=== PATIENT | male | born 1955 | race Caucasian/White ===

== ENCOUNTER 2020-04-18 13:32 | Emergency (ER) | payer MEDICAID ==
[~2020-04-18] VITALS: Ht 185.4 cm; Wt 86.2 kg
[2020-04-18 13:32] VITALS: BP_SYST 147
--- NOTE | 2020-04-18 13:32 | NUR ---
BROUGHT IN BY [facility] FROM HOME, PLACED IN BED #3 AND TRIAGED. REPORT GIVEN TO BLU
--- NOTE | 2020-04-18 13:35 | NUR ---
ER Dr. Deng at bedside examining patient.
[2020-04-18] MEDS ORDERED: ONDANSETRON HCL 4 MG/2 ML VIAL IVP ONE (13:45)
[2020-04-18] MEDS ORDERED: MORPHINE 4 MG/ML INJ. SYRINGE IVP ONE (13:45)
--- NOTE | 2020-04-18 14:20 | NUR ---
BLOOD DRAWN PER LAB.
[2020-04-18 14:35] LABS: BASOPHILS % (AUTO) 0.6 % (0.0-2.0); HEMATOCRIT 43.7 % (36-54); HEMOGLOBIN 14.8 g/dL (14.0-18.0); LYMPHOCYTES # (AUTO) 0.5 K/uL (1.0-5.5); LYMPHOCYTES % (AUTO) 6.3 % (20.5-51.5); MEAN CORPUSCULAR HEMOGLOBIN 34 pg (27-31); MEAN CORPUSCULAR HGB CONC 34 % (32-36); MEAN CORPUSCULAR VOLUME 100 fL (79.0-98.0); MONOCYTES # (AUTO) 0.4 K/uL (0.0-1.0); MONOCYTES % (AUTO) 5.6 % (1.7-9.3); NEUTROPHILS # (AUTO) 6.8 K/uL (1.8-7.7); NEUTROPHILS % (AUTO) 87.5 % (40.0-70.0); PLATELET COUNT (AUTO) 213 K/uL (130-430); RED BLOOD CELL COUNT(AUTO) 4.35 MIL/uL (4.2-6.2); RED CELL DISTRIBUTION WIDTH 13.9 % (9.0-15.0); WHITE BLOOD COUNT (AUTO) 7.7 K/uL (4.8-10.8)
--- NOTE | 2020-04-18 14:40 | NUR ---
PT AAO AND AMBULATORY BIB AMBULANCE FOR CHEST PAIN THAT STARTED TODAY. PT REPORTS COMING FROM HOME AND THAT CHEST PAIN STARTED THIS MORNING 03/16 PAIN AND PT ALSO C/O N/V AND HEADACHE.
[2020-04-18 14:52] LABS: INR 1.1 (0.80-1.20); PROTHROMBIN TIME 11.5 SECS (9.5-12.5)
[2020-04-18 15:07] LABS: CALCIUM 9.4 mg/dL (8.4-11.0); CREATININE 1.55 mg/dL (0.55-1.30); POTASSIUM 3.5 mmol/L (3.5-5.1)
[2020-04-18 15:10] LABS: ALBUMIN 3.5 g/dL (3.4-4.8)
--- NOTE | 2020-04-18 15:15 | NUR ---
pt in [place] with side rails up. urinal at bedside and pt reminded to call for help if needed.
[2020-04-18] MEDS ORDERED: NACL 0.9% 1,000 ML IV ONE (15:30)
--- NOTE | 2020-04-18 15:54 | NUR ---
pt alert and oriented. VSS. IVF infusing.
--- NOTE | 2020-04-18 15:55 | NUR ---
spoke to luis, hospital insurance representative, regarding pt status. They will attempt to trasnfer pt due to pt insurance not being contracted with facility. will call back with transfer info Addendum: 04/18/20 at 1605 by KAVYAM transplant case manager called regarding pt transfer. will hear from [facility] regarding transfer. spoke to betzaida
[2020-04-18 16:14] LABS: ACETONE, SERUM NEGATIVE (NEGATIVE)
--- NOTE | 2020-04-18 16:18 | NUR ---
spoke to Snoy, Transfer Set up employment evaluator/case manager, stated to call a peer to peer with Dr. Delarosa and afterwards call [facility] back after the doctors have spoken. Dr. Delarosa- [phone] Sony: [phone]
[2020-04-18 16:19] LABS: BARBITURATE, URINE NEGATIVE (NEG <=200); BENZODIAZEPINE, URINE NEGATIVE (NEG <=150); CANNABINOID, URINE NEGATIVE (NEG <=50); COCAINE, URINE NEGATIVE (NEG <=150); METHAMPHETAMINES SCREEN,URINE NEGATIVE (NEG <=500); OPIATE, URINE POSITIVE (NEG <=100); PHENCYCLIDINE SCREEN,URINE NEGATIVE (NEG <=25); UR TRICYCLIC ANTIDEPRESSANTS NEGATIVE (NEG <=300); URINE AMPHETAMINE NEGATIVE (NEG <=500); URINE METHADONE NEGATIVE (NEG <=200); URINE OXYCODONE SCREEN NEGATIVE (NEG <=100); URINE PROPOXYPHENE SCREEN NEGATIVE (NEG <=300)
--- NOTE | 2020-04-18 16:43 | NUR ---
Dr. Delarosa called back regarding pt status and to speak to Dr. Deng
[2020-04-18 16:47] LABS: ALCOHOL, BLOOD < 3 mg/dL (<10)
--- NOTE | 2020-04-18 17:11 | NUR ---
Dr. Delarosa paged back to speak to Dr. Deng again. Pt will be going to [facility]. Will call [facility] to get bed and accepting doctor.
--- NOTE | 2020-04-18 17:36 | NUR ---
TRANSPORT INFO [facility] GALVEZ REPORT: [phone]-[id number] AUTH FOR AMBULANCE: [id number]
[2020-04-18 18:51] VITALS: BP_SYST 160
--- NOTE | 2020-04-18 18:55 | NUR ---
Patient to be transferred to [facility]. Is being transferred due to higher level of care. Receiving facility has accepting physician and available space. ER physician has signed transfer form. Patient or responsible libertarian has agreed to transfer and signed form. Patient belongings inventoried and will be sent with patient. Copy of nursing notes, lab reports, EKG, Physicians Orders and X-rays to be sent with patient. Report called to BELÉN RN/HS at receiving facility. Receiving physician is [place]. [facility] has been called for transfer. ETA is 1 hr.
== END 2020-04-18 18:55 | disposition short-term general hospital (02) ==
LOC: SED 13:32
DX: E11.43 Type 2 diabetes mellitus with diabetic autonomic (poly)neuropathy (principal); K31.84 Gastroparesis; E87.2 Acidosis
CPT/HCPCS: 36415; 74176; 80053; 80307; 81002; 82009; 82140; 82150; 83605; 83615; 83690; 84484; 85025; 85610; 85730; 96361; 96374; 96375; 99285; G0482; J2270; J2405; J7030; 93005

== ENCOUNTER 2020-08-03 09:04 | Inpatient (IN) | payer MEDICAID, SELFPAY ==
[~2020-08-03] VITALS: Ht 182.9 cm; Wt 97.5 kg
[2020-08-03 09:04] VITALS: BP_SYST 135
--- NOTE | 2020-08-03 09:04 | NUR ---
Placed in room 7. Placed on wrapping machine helper, blood pressure machine and pulse oximeter. To gown for exam. Side rails up.
--- NOTE | 2020-08-03 09:05 | NUR ---
Patient arrived via ALS from home. Patient is complaining that he feels like he can't get any air, O2 saturation is 96% on room air.
--- NOTE | 2020-08-03 09:20 | NUR ---
ER Dr. Ferrell at bedside examining patient.
[2020-08-03] MEDS ORDERED: ALBUTEROL SULFATE 0.083% 2.5 MG/3 ML VIAL.NEB INH ONE (09:30)
[2020-08-03] MEDS ORDERED: DIPHENHYDRAMINE INJ 50 MG/ML VIAL IVP ONE (10:00)
[2020-08-03 10:14] LABS: BASOPHILS # (AUTO) 0.1 K/uL (0.0-0.2); BASOPHILS % (AUTO) 0.7 % (0.0-2.0); EOSINOPHILS % (AUTO) 0.6 % (0.0-4.0); HEMATOCRIT 45.9 % (36-54); LYMPHOCYTES # (AUTO) 0.8 K/uL (1.0-5.5); LYMPHOCYTES % (AUTO) 9.8 % (20.5-51.5); MEAN CORPUSCULAR HEMOGLOBIN 36 pg (27-31); MEAN CORPUSCULAR HGB CONC 35 % (32-36); MEAN CORPUSCULAR VOLUME 103 fL (79.0-98.0); MONOCYTES # (AUTO) 0.6 K/uL (0.0-1.0); MONOCYTES % (AUTO) 7.7 % (1.7-9.3); NEUTROPHILS # (AUTO) 6.8 K/uL (1.8-7.7); NEUTROPHILS % (AUTO) 81.2 % (40.0-70.0); PLATELET COUNT (AUTO) 249 K/uL (130-430); RED BLOOD CELL COUNT(AUTO) 4.45 MIL/uL (4.2-6.2); RED CELL DISTRIBUTION WIDTH 14.3 % (9.0-15.0); WHITE BLOOD COUNT (AUTO) 8.4 K/uL (4.8-10.8)
[2020-08-03 10:17] LABS: CALCIUM 9.4 mg/dL (8.4-11.0); CREATININE 1.22 mg/dL (0.55-1.30); POTASSIUM 4.1 mmol/L (3.5-5.1)
[2020-08-03 10:23] LABS: TOTAL BILIRUBIN 1.2 mg/dL (0.0-1.0)
[2020-08-03 10:31] LABS: PROTHROMBIN TIME 10.5 SECS (9.5-12.5)
[2020-08-03 10:38] LABS: INFLUENZA A&B ANTIGEN SCREEN NEGATIVE FOR A & B (NEGATIVE)
[2020-08-03 10:44] LABS: BILIRUBIN,URINE NEGATIVE (NEGATIVE); BLOOD, URINE NEGATIVE (NEGATIVE); CLARITY/URINE CLEAR (CLEAR); COLOR,URINE YELLOW (YELLOW); GLUCOSE,URINE 2+ (NEGATIVE); KETONES,URINE 1+ (NEGATIVE); LEUKOCYTE ESTERASE ,URINE NEGATIVE (NEGATIVE); NITRITE, URINE NEGATIVE (NEGATIVE); PROTEIN URINE 2+ (NEGATIVE)
[2020-08-03 11:55] LABS: BARBITURATE, URINE NEGATIVE (NEG <=200); BENZODIAZEPINE, URINE POSITIVE (NEG <=150); CANNABINOID, URINE NEGATIVE (NEG <=50); COCAINE, URINE NEGATIVE (NEG <=150); METHAMPHETAMINES SCREEN,URINE NEGATIVE (NEG <=500); OPIATE, URINE NEGATIVE (NEG <=100); PHENCYCLIDINE SCREEN,URINE NEGATIVE (NEG <=25); UR TRICYCLIC ANTIDEPRESSANTS NEGATIVE (NEG <=300); URINE AMPHETAMINE NEGATIVE (NEG <=500); URINE METHADONE NEGATIVE (NEG <=200); URINE OXYCODONE SCREEN NEGATIVE (NEG <=100); URINE PROPOXYPHENE SCREEN NEGATIVE (NEG <=300)
[2020-08-03] MEDS ORDERED: LORazepam 2 MG/ML VIAL IVP ONE (12:00)
[2020-08-03] MEDS ORDERED: NACL 0.9% 1,000 ML IV ONE (12:00)
[2020-08-03] MEDS ORDERED: HYDROcodone/ACETAMIN 5-325 MG TAB (NORCO/ VICODIN) PO PRN (12:15)
[2020-08-03] MEDS ORDERED: LORazepam 2 MG/ML VIAL IVP PRN (12:15)
[2020-08-03] MEDS ORDERED: ACETAMINOPHEN 325 MG TABLET PO PRN (12:15)
--- NOTE | 2020-08-03 12:34 | NUR ---
Spoke with Case managment regarding pt clinical updates
--- NOTE | 2020-08-03 13:00 | NUR ---
Patient will be admitted to care of [facility]. Admitted to Tele unit. Will go to room 112B. Belongings list completed. Complete and up to date summary report printed. SBAR report to be given at bedside with opportunity for questions.
[2020-08-03 15:48] VITALS: BP_SYST 121
--- NOTE | 2020-08-03 16:00 | NUR ---
admission notes rec patient for er with a dx of alcohol withdrawal. awake alert with ivl on the l ac intact. no infiltration noted. noted patient to be shaking. made patient comfortable in bed. resp easy and unlabored. no sob noted. bed to the lowest position and side rails up and locked. call light within reached and knows when to call for assistance.
[2020-08-03 16:05] VITALS: BP_SYST 121
[2020-08-03] MEDS: chlordiazePOXIDE HCL 10 MG CAPSULE PO SCH ×2 (17:11→21:05)
[2020-08-03] MEDS: ONDANSETRON HCL 4 MG/2 ML VIAL IVP PRN (17:18)
[2020-08-03] MEDS: D5/0.45 NS 1,000 ML IV SCH (17:19)
[2020-08-03] MEDS: HYDROcodone/ACETAMIN 10-325 MG TAB PO PRN (17:35)
[2020-08-03] MEDS ORDERED: GLU500 PO (18:26)
[2020-08-03] MEDS ORDERED: PIOG15TA8 PO (18:26)
[2020-08-03] MEDS ORDERED: GLIP5TAB26 PO (18:26)
[2020-08-03] MEDS ORDERED: ESCI10TA PO (18:26)
[2020-08-03] MEDS ORDERED: NEU300 PO (18:26)
[2020-08-03] MEDS ORDERED: LIP20 PO (18:26)
[2020-08-03] MEDS ORDERED: LISI10TA5 PO (18:26)
--- NOTE | 2020-08-03 18:30 | NUR ---
cloosing notes random blood sugar checked was done and was 258. iv started on the l ac. no infiltration noted. bed to the lowest position and side rails up and locked. call light within reached. resitng comfortably.
--- NOTE | 2020-08-03 19:30 | NUR ---
Opening notes Received report. Patient is resting in bed, no signs of distress noted. Breathing even and unlabored on room air. No complaints of pain. IV patent and intact, infusing fluids. Emptied 200 ml from urinal. No other needs. Call light with the patient. Safety precautions in place.
[2020-08-03 20:53] VITALS: BP_SYST 147
--- NOTE | 2020-08-03 21:05 | NUR ---
Medications given. Educated the action and side effects of Librium. Patient verbalized understanding and tolerated well. No other needs. Call light with the patient. Safety precautions in place.
--- NOTE | 2020-08-03 23:42 | NUR ---
RN rounds Patient resting in bed, no signs of distress noted. Breathing even and unlabored on room air. IVF infusing well. Call light with the patient. Safety precautions in place.
[2020-08-04 00:06] VITALS: BP_SYST 131
--- NOTE | 2020-08-04 02:00 | NUR ---
RN rounds Patient sleeping. No signs of distress noted. Breathing even and unlabored on room air. IVF infusing well. Call light with the patient. Safety precautions in place.
[2020-08-04] MEDS: D5/0.45 NS 1,000 ML IV SCH ×3 (04:03→14:27)
[2020-08-04] MEDS: HYDROcodone/ACETAMIN 10-325 MG TAB PO PRN ×2 (04:04→14:32)
[2020-08-04] MEDS: ONDANSETRON HCL 4 MG/2 ML VIAL IVP PRN (04:04)
--- NOTE | 2020-08-04 04:45 | NUR ---
Nausea/Pain Patient complain of pain to legs and nausea. PRN medications given. Educated the action and side effects of [place]. Patient verbalized understanding and tolerated well. Emptied 300 ml from urinal. No other needs. Call light with the patient. Safety precautions in place.
--- NOTE | 2020-08-04 06:40 | NUR ---
Closing notes Patient is resting in bed, no signs of distress noted. Breathing even and unlabored on room air. No complaints of SOB, pain or nausea. IV patent and intact, infusing fluids. All needs met throughout the shift. Call light with the patient. Safety precautions in place. Will endorse care to day shift RN.
[2020-08-04 06:47] LABS: EOSINOPHILS # (AUTO) 0.2 K/uL (0.0-0.4); EOSINOPHILS % (AUTO) 4.3 % (0.0-4.0); HEMATOCRIT 38.1 % (36-54); HEMOGLOBIN 13.1 g/dL (14.0-18.0); LYMPHOCYTES # (AUTO) 1.1 K/uL (1.0-5.5); LYMPHOCYTES % (AUTO) 22.2 % (20.5-51.5); MEAN CORPUSCULAR HEMOGLOBIN 36 pg (27-31); MEAN CORPUSCULAR HGB CONC 35 % (32-36); MEAN CORPUSCULAR VOLUME 104 fL (79.0-98.0); MONOCYTES # (AUTO) 0.6 K/uL (0.0-1.0); MONOCYTES % (AUTO) 11.5 % (1.7-9.3); PLATELET COUNT (AUTO) 157 K/uL (130-430); RED BLOOD CELL COUNT(AUTO) 3.67 MIL/uL (4.2-6.2); RED CELL DISTRIBUTION WIDTH 13.9 % (9.0-15.0); WHITE BLOOD COUNT (AUTO) 4.9 K/uL (4.8-10.8)
[2020-08-04 07:15] LABS: ALBUMIN 3.2 g/dL (3.4-4.8); CREATININE 1.03 mg/dL (0.55-1.30); PHOSPHORUS 2.4 mg/dL (2.7-4.5); POTASSIUM 3.5 mmol/L (3.5-5.1); TOTAL BILIRUBIN 1.7 mg/dL (0.0-1.0)
--- NOTE | 2020-08-04 07:59 | NUR ---
Initial notes Awake, oriented. watching TV. Denies any chest pain or shortness of breath, patient stated that he feels better. No shakiness noted at this time. IVF infusing well. Call light in reach. Enc to call for help as needed.
[2020-08-04 08:03] VITALS: BP_SYST 135
[2020-08-04] MEDS: chlordiazePOXIDE HCL 10 MG CAPSULE PO SCH ×3 (08:29→21:20)
--- NOTE | 2020-08-04 09:00 | NUR ---
Med rec- patient does not remember all his medications at home, patient remembers most of it. Med rec done as patient's remember.
[2020-08-04] MEDS ORDERED: ARIP5TAB10 PO (10:38)
--- NOTE | 2020-08-04 11:00 | NUR ---
notes- Assisted patient to the bathroom with Front wheel walker, pt still feels weak but denies any dizziness at this time. No acute distress noted.
--- NOTE | 2020-08-04 11:07 | NUR ---
Nutrition Update Manoj Scale 18 noted. Pt admitted for alcohol withdrawal. Diet: regular BMI: 29.2 kg/m2 RD to follow per nutrition care standards.
[2020-08-04 12:00] VITALS: BP_SYST 144
--- NOTE | 2020-08-04 13:54 | NUR ---
Web Content Developer: notes RN PACU received a referral to see pt. who was going through alcohol withdrawal. RN PACU met with patient at bedside who was awak alert and watching television. RN PACU was able to confirm demographics. Patient wanted to add his son, Iraj Delgado who is in the [employer] to the emergency contact, . Patient was very talkative and needed re-directing. Patient admitted to drinking too much and stated he wants to stop drinking. Patient stated he has utilized AA services in the past and stated he will re-consider returning. Patient stated he is not really into large groups. RN PACU asked if he would look into this resources. Due to Covid, they may be meeting via zoom. Patient added that he has participated in one session with an online group to aid in alcoholism. He could not remember the name of the group. Lastly patient stated he has reached out to the [facility]. of mental health ( on [address]). He left a message for "Mehreen". Patient did not know if she was a therapist, but added Mehreen called him back. Patient agreed to call her back. RN PACU shared some resources with him, mental health and substance abuse. Patient stated it has been his experience that there is a long wait to get services. RN PACU asked him to make some calls and get more support. Patient agreed this was a good approach. RN PACU will remain available as needed.
--- NOTE | 2020-08-04 13:55 | NUR ---
Notes- Resting, No distress noted. Spoke to Dr. Rai earlier and aware of blood culture results. MD will come and see patient.
[2020-08-04] MEDS ORDERED: THIAMINE HCL 100 MG TABLET PO ONE (15:00)
[2020-08-04] MEDS ORDERED: MULTIVITAMINS TAB 1 TABLET PO ONE (15:00)
[2020-08-04] MEDS ORDERED: FOLIC ACID 1 MG TABLET PO ONE (15:00)
[2020-08-04] MEDS ORDERED: PIOGLITAZONE HCL 15 MG TABLET PO ONE (15:00)
[2020-08-04] MEDS ORDERED: CITALOPRAM HYDROBROMIDE 20 MG TABLET PO ONE (15:00)
[2020-08-04] MEDS ORDERED: LISINOPRIL 10 MG TABLET (PRINIVIL) PO ONE (15:00)
[2020-08-04] MEDS ORDERED: glipiZIDE XL 5 MG TAB ( GLUCOTROL XL) PO ONE (15:00)
--- NOTE | 2020-08-04 15:11 | NUR ---
CONSULTATION PAGED/CALLED Reason for Consultation: [] bacteremia Person Who was Notified: [] AMIRA Consulting Physician: [] DR WALDEN Dental Cream Maker Specialty: [] ID Ordering Physician: [] DR Clyde SIDDIQI
--- NOTE | 2020-08-04 15:15 | NUR ---
CONSULTATION PAGED/CALLED Reason for Consultation: [] ALOC Person Who was Notified: [] TEXTED MD DR BRADSHAW Consulting Physician: [] CHIO KISER Health Care Law Specialist Specialty: [] NEUROLOGY Ordering Physician: [] DR Clyde SIDDIQI
--- NOTE | 2020-08-04 15:19 | NUR ---
CONSULTATION PAGED/CALLED Reason for Consultation: [] SYNCOPE Person Who was Notified: [] PAGED DR Jasmin SIDDIQI DIRECTLY Consulting Physician: [] DR Jasmin SIDDIQI Accountant Controller Specialty: [] CARDIOLOGY Ordering Physician: [] DR Clyde SIDDIQI
[2020-08-04] MEDS ORDERED: NA PHOS 15 MM in NS 250 ML IV ONE (15:30)
[2020-08-04 16:00] VITALS: BP_SYST 134
--- NOTE | 2020-08-04 16:00 | NUR ---
Notes- Ambulate with front wheel walker, tolerating so far, patient still some weakness.
[2020-08-04] MEDS: metFORMIN HCL 500 MG TABLET PO SCH (17:44)
[2020-08-04] MEDS: GABAPENTIN 300 MG CAPSULE PO SCH ×2 (17:52→21:20)
--- NOTE | 2020-08-04 18:04 | NUR ---
Notes- Eating dinner, pain is controlled at this time. No distress noted.
--- NOTE | 2020-08-04 19:30 | NUR ---
Initial note: Received report from priscila RN. Patient is sitting up at bedside. Assisted patient to the bathroom at this time. Even, nonlabored breathing on room air. IV site is patent and intact. Bed is locked at lowest position. Bed alarm on. Side rails up x2. Call light is with patient. Safety and fall precautions. Will continue with plan of care.
[2020-08-04 20:00] VITALS: BP_SYST 123
[2020-08-04] MEDS ORDERED: VANCOMYCIN HCL 1 GM/NS PREMIX 250 ML IV ONE (20:00)
[2020-08-04] MEDS ORDERED: VANCOMYCIN HCL 1000 MG/VIAL IV ONE (20:20)
[2020-08-04] MEDS ORDERED: ARIPiprazole 5 MG TAB PO SCH (21:00)
[2020-08-04] MEDS ORDERED: ATORVASTATIN 20 MG TABLET PO SCH (21:00)
--- NOTE | 2020-08-04 23:45 | NUR ---
Rounds: Patient is sleeping in bed. No acute distress. Breathing is even and nonlabored. Call light is with patient. Safety and fall precautions in place. Will continue monitoring.
[2020-08-05] VITALS: BP_SYST 122
[2020-08-05] MEDS: D5/0.45 NS 1,000 ML IV SCH (05:52)
--- NOTE | 2020-08-05 06:42 | NUR ---
Closing Note: Patient is watching TV in bed. No acute distress. Even, nonlabored breathing on room air. IV site is patent and intact. Bed is locked at lowest position. Side rails up. Call light is with patient. Safety and fall precautions in place. Will endorse to priscila RN.
--- NOTE | 2020-08-05 07:34 | NUR ---
OPENING NOTE Patient resting in the bed. No acute distress. AAo x 4. Denied of pain at this time. Skin warm and dry to touch. IV intact to LAC, no redness, no swelling, no drainage. On D5 1/2NS at 100ml/hr, infusing well. Discussed the safety issue, use call light when needs help, and plan of care, verbally understanding. Safety measure maintained. Call light within reached. Bed locked in low position, side rails up. Refused bed alarm, risk and benefit explained, verbally understanding. Will continue to monitor.
[2020-08-05 07:55] VITALS: BP_SYST 124
[2020-08-05] MEDS: metFORMIN HCL 500 MG TABLET PO SCH (08:44)
[2020-08-05] MEDS: GABAPENTIN 300 MG CAPSULE PO SCH (08:44)
[2020-08-05] MEDS: chlordiazePOXIDE HCL 10 MG CAPSULE PO SCH (08:44)
--- NOTE | 2020-08-05 08:44 | NUR ---
AM PO SCHEDULE MED GIVEN. PATIENT TOLERATED WELL.
[2020-08-05] MEDS ORDERED: VANCOMYCIN HCL 1,500 MG in NS 250 ML IV SCH (09:00)
[2020-08-05] MEDS ORDERED: glipiZIDE XL 5 MG TAB ( GLUCOTROL XL) PO SCH (09:00)
[2020-08-05] MEDS ORDERED: LISINOPRIL 10 MG TABLET (PRINIVIL) PO SCH (09:00)
[2020-08-05] MEDS ORDERED: FOLIC ACID 1 MG TABLET PO SCH (09:00)
[2020-08-05] MEDS ORDERED: PIOGLITAZONE HCL 15 MG TABLET PO SCH (09:00)
[2020-08-05] MEDS ORDERED: MULTIVITAMINS TAB 1 TABLET PO SCH (09:00)
[2020-08-05] MEDS ORDERED: CITALOPRAM HYDROBROMIDE 20 MG TABLET PO SCH (09:00)
[2020-08-05] MEDS ORDERED: THIAMINE HCL 100 MG TABLET PO SCH (09:00)
--- NOTE | 2020-08-05 09:32 | NUR ---
VANCOMYCIN IVPB MARLENY.
[2020-08-05 10:00] VITALS: BP_SYST 131
--- NOTE | 2020-08-05 11:18 | NUR ---
PATIENT WANTS TO GO HOME. CALLED DR. SIDDIQI, MARICARMEN BIBI, LEFT MESSAGE TO MARIA ESTHER AND WAITED TO CALL BACK.
--- NOTE | 2020-08-05 11:26 | NUR ---
RECEIVED CALL BACK FROM MARICARMEN FELICIANO. REPORTED TO DR. SIDDIQI, THE PATIENT WANTS TO GO HOME AND WILL BE NO ONE PICK HIM UP AFTER 1230.
[2020-08-05 12:00] VITALS: BP_SYST 131
[2020-08-05] MEDS: HYDROcodone/ACETAMIN 10-325 MG TAB PO PRN (12:03)
--- NOTE | 2020-08-05 12:03 | NUR ---
NORCO GIVEN Patient c/o generalized pain 03/16. [place] 10/325mg 1 tab PO given as ordered. No acute distress. Safety measure maintained. Call light within reached. continue to monitor.
[2020-08-05] MEDS ORDERED: LIB10 PO (12:10)
[2020-08-05] MEDS ORDERED: Multivitamins Tab PO (12:10)
[2020-08-05] MEDS ORDERED: Thiamine Hcl PO (12:10)
[2020-08-05] MEDS ORDERED: FOLI-43 PO (12:10)
--- NOTE | 2020-08-05 12:20 | NUR ---
SEEN AND EXAMINED BY MARICARMEN FELICIANO WITH ORDER OF DISCHARGE HOME. DR. SIDDIQI EXPLAINED TO PATIENT THE DISEASE PROCESS, FOLLOW UP APPOINTMENT, AND NEW MEDICATION PRESCRIBED. PATIENT VERBALLY UNDERSTANDING.
--- NOTE | 2020-08-05 12:39 | NUR ---
2D ECHO DONE AT BEDSIDE. EF=60%.
[2020-08-05 13:44] VITALS: BP_SYST 131
--- NOTE | 2020-08-05 14:10 | NUR ---
SEEN AND EXAMINED BY CHIO ALVAREZ (COVERING FOR JESE BUSH).
--- NOTE | 2020-08-05 14:40 | NUR ---
D/C Patient Patient given medication reconciliation form and D/C instructions. Exit Care provided. Patient verbalized understanding. MD discussed with patient the results and treatment provided. Ambulatory with steady gait for discharge to home. Patient in stable condition, ID band removed. IV catheter removed, intact and dressing applied, no active bleeding. Rx of Librium, folic acid, Multivitamins, and Thiamine Hcl given. Patient educated on pain management and follow up appointment with PCP in 1 week, verbally understanding. All belongings sent with patient.
== END 2020-08-05 14:40 | disposition home or self-care (01) | DRG 775 ==
LOC: SED 09:04 → STU 12:10 → SMU 08-05 08:23
PROVIDERS: ADMIT Preventive Medicine Preventive Medicine/Occupational Environmental Medicine; ATTEND Preventive Medicine Preventive Medicine/Occupational Environmental Medicine
DX: F10.239 Alcohol dependence with withdrawal, unspecified (principal); J44.9 Chronic obstructive pulmonary disease, unspecified; E11.40 Type 2 diabetes mellitus with diabetic neuropathy, unspecified; Y90.9 Presence of alcohol in blood, level not specified; E11.65 Type 2 diabetes mellitus with hyperglycemia; E88.09 Other disorders of plasma-protein metabolism, not elsewhere classified; E87.2 Acidosis; R74.01 Elevation of levels of liver transaminase levels; F13.10 Sedative, hypnotic or anxiolytic abuse, uncomplicated; E87.1 Hypo-osmolality and hyponatremia; E46 Unspecified protein-calorie malnutrition; E83.51 Hypocalcemia; E83.39 Other disorders of phosphorus metabolism; E78.5 Hyperlipidemia, unspecified; Z20.828 Contact with and (suspected) exposure to other viral communicable diseases; R17 Unspecified jaundice; Z88.6 Allergy status to analgesic agent; G93.41 Metabolic encephalopathy
CPT/HCPCS: 36415; 70450-TC; 71045; 76376; 80053; 80307; 81003; 82962; 83605; 83735-TC; 83880; 84100-TC; 84484; 85025; 85379; 85610-TC; 86710; 87040-TC; 93005; 93306; 93880; 94640; 96361; 96374; 96375; 99285; G0378; J1200; J2060; J2405; J3370; J7050; J7613

== ENCOUNTER 2020-08-31 13:52 | Emergency (ER) | payer MEDICAID, SELFPAY ==
[~2020-08-31] VITALS: Ht 172.7 cm; Wt 90.7 kg
[~2020-08-31 13:52] MED LIST: ARIP5TAB10 PO; ESCI10TA PO; FOLI-43 PO; GLIP5TAB26 PO; GLU500 PO; LIB10 PO; LIP20 PO; LISI10TA5 PO; Multivitamins Tab PO; NEU300 PO; PIOG15TA8 PO; Thiamine Hcl PO
[2020-08-31 14:30] VITALS: BP_SYST 106
--- NOTE | 2020-08-31 14:39 | NUR ---
PLACED IN BED 3
[2020-08-31] MEDS ORDERED: INSULIN REGULAR, HUMAN 10 UNITS/0.1 ML INJ SUBCUT ONE (14:45)
--- NOTE | 2020-08-31 15:00 | NUR ---
DR BOOKER IN TO ASSESS
[2020-08-31 15:03] VITALS: BP_SYST 114
--- NOTE | 2020-08-31 15:15 | NUR ---
Patient given written and verbal discharge instructions and verbalizes understanding. ER MD discussed with patient the results and treatment provided. Patient in stable condition. ID arm band removed. IV catheter removed intact and dressing applied, no active bleeding. Patient educated on pain management and to follow up with PMD. Pain Scale 0/10 Opportunity for questions provided and answered. Medication side effect fact sheet provided.
--- NOTE | 2020-08-31 15:55 | NUR ---
CALM, ALERT, RESP UNLABORED, SKIN WARM AND DRY. CLEAR MENTATION AND SPEECH, C/O ALCOHOLISM AND BS. DENIES CP/SOB
[2020-09-01] MEDS ORDERED: INSULIN REGULAR, HUMAN 10 UNITS/0.1 ML INJ ONE ×3 (03:04→07:26)
[2020-09-01] MEDS ORDERED: MORPHINE 2 MG/ML INJ. SYRINGE ONE (05:51)
== END 2020-08-31 15:03 | disposition home or self-care (01) ==
LOC: SED 13:52
DX: F10.129 Alcohol abuse with intoxication, unspecified (principal); J44.9 Chronic obstructive pulmonary disease, unspecified; E11.40 Type 2 diabetes mellitus with diabetic neuropathy, unspecified; Z88.6 Allergy status to analgesic agent; Z79.899 Other long term (current) drug therapy
CPT/HCPCS: 93005; 96372; 99283; J1815; J2270; J7030

== ENCOUNTER 2020-08-31 22:21 | Inpatient (IN) | payer MEDICAID, SELFPAY ==
[~2020-08-31] VITALS: Ht 177.8 cm; Wt 86.2 kg
[2020-08-31 22:29] VITALS: BP_SYST 130
[2020-08-31 23:49] LABS: BASOPHILS # (AUTO) 0.1 K/uL (0.0-0.2); EOSINOPHILS # (AUTO) 0.6 K/uL (0.0-0.4); HEMOGLOBIN 13.7 g/dL (14.0-18.0); LYMPHOCYTES # (AUTO) 1.9 K/uL (1.0-5.5); MEAN CORPUSCULAR VOLUME 102 fL (79.0-98.0); RED CELL DISTRIBUTION WIDTH 13.7 % (9.0-15.0)
[2020-08-31 23:54] LABS: BASOPHILS % (AUTO) 1.2 % (0.0-2.0); EOSINOPHILS % (AUTO) 8.2 % (0.0-4.0); HEMATOCRIT 39.5 % (36-54); LYMPHOCYTES % (AUTO) 25.4 % (20.5-51.5); MEAN CORPUSCULAR HEMOGLOBIN 36 pg (27-31); MEAN CORPUSCULAR HGB CONC 35 % (32-36); MONOCYTES # (AUTO) 0.7 K/uL (0.0-1.0); MONOCYTES % (AUTO) 9.1 % (1.7-9.3); NEUTROPHILS # (AUTO) 4.2 K/uL (1.8-7.7); NEUTROPHILS % (AUTO) 56.1 % (40.0-70.0); PLATELET COUNT (AUTO) 196 K/uL (130-430); RED BLOOD CELL COUNT(AUTO) 3.86 MIL/uL (4.2-6.2); WHITE BLOOD COUNT (AUTO) 7.5 K/uL (4.8-10.8)
[2020-09-01 00:05] LABS: PROTHROMBIN TIME 10.5 SECS (9.5-12.5)
[2020-09-01 00:09] LABS: CALCIUM 9.3 mg/dL (8.4-11.0); CREATININE 1.22 mg/dL (0.55-1.30); POTASSIUM 4.5 mmol/L (3.5-5.1)
[2020-09-01 00:16] LABS: ALBUMIN 3.2 g/dL (3.4-4.8); TOTAL BILIRUBIN 0.2 mg/dL (0.0-1.0)
[2020-09-01] MEDS ORDERED: INSULIN REGULAR, HUMAN 10 UNITS/0.1 ML INJ IVP ONE ×2 (02:30→04:15)
[2020-09-01] MEDS ORDERED: NACL 0.9% 1,000 ML IV ONE (02:30)
[2020-09-01 02:41] LABS: BILIRUBIN,URINE NEGATIVE (NEGATIVE); BLOOD, URINE NEGATIVE (NEGATIVE); CLARITY/URINE CLEAR (CLEAR); COLOR,URINE YELLOW (YELLOW); GLUCOSE,URINE 3+ (NEGATIVE); KETONES,URINE NEGATIVE (NEGATIVE); LEUKOCYTE ESTERASE ,URINE NEGATIVE (NEGATIVE); NITRITE, URINE NEGATIVE (NEGATIVE); PH,URINE 5.5 (5.0-8.0); PROTEIN URINE NEGATIVE (NEGATIVE); UROBILINOGEN,URINE 0.2 (0.2-1.0)
[2020-09-01 02:44] LABS: ACETONE, URINE 1+ (NEGATIVE)
[2020-09-01] MEDS ORDERED: MORPHINE 2 MG/ML INJ. SYRINGE IVP ONE (05:30)
[2020-09-01] MEDS: INSULIN REGULAR, HUMAN 100 UNITS/ML, 10 ML VIAL (humuLIN R) SUBCUT PRN ×2 (07:25→11:20)
[2020-09-01] MEDS ORDERED: NACL 0.9% 1,000 ML IV SCH (07:30)
[2020-09-01 15:00] VITALS: BP_SYST 129
[2020-09-01] MEDS ORDERED: INSULIN REGULAR, HUMAN 100 UNITS/ML, 10 ML VIAL (humuLIN R) SUBCUT PRN (16:30)
[2020-09-01] MEDS ORDERED: metFORMIN HCL 500 MG TABLET PO SCH (18:00)
[2020-09-01] MEDS ORDERED: GABAPENTIN 300 MG CAPSULE PO SCH (21:00)
[2020-09-01] MEDS ORDERED: chlordiazePOXIDE HCL 10 MG CAPSULE PO SCH (21:00)
[2020-09-01] MEDS ORDERED: ARIPiprazole 5 MG TAB PO SCH (21:00)
[2020-09-01] MEDS ORDERED: ATORVASTATIN 20 MG TABLET PO SCH (21:00)
[2020-09-02] MEDS ORDERED: FOLIC ACID 1 MG TABLET PO SCH (09:00)
[2020-09-02] MEDS ORDERED: ESCITALOPRAM OXALATE 10 MG TABLET PO SCH (09:00)
[2020-09-02] MEDS ORDERED: LISINOPRIL 10 MG TABLET (PRINIVIL) PO SCH (09:00)
[2020-09-02] MEDS ORDERED: glipiZIDE XL 5 MG TAB ( GLUCOTROL XL) PO SCH (09:00)
[2020-09-02] MEDS ORDERED: CITALOPRAM HYDROBROMIDE 20 MG TABLET PO SCH (09:00)
[2020-09-02] MEDS ORDERED: PIOGLITAZONE HCL 15 MG TABLET PO SCH (09:00)
== END 2020-09-01 16:31 | disposition left against medical advice (07) | DRG 137 ==
LOC: SED 22:21 → STU 09-01 06:19
PROVIDERS: ADMIT Family Medicine; ATTEND Family Medicine
DX: U07.1 COVID-19 (principal); J44.9 Chronic obstructive pulmonary disease, unspecified; E11.40 Type 2 diabetes mellitus with diabetic neuropathy, unspecified; F99 Mental disorder, not otherwise specified; F31.9 Bipolar disorder, unspecified; I10 Essential (primary) hypertension; Z53.29 Procedure and treatment not carried out because of patient's decision for other reasons; F10.20 Alcohol dependence, uncomplicated; Y90.9 Presence of alcohol in blood, level not specified; Z82.49 Family history of ischemic heart disease and other diseases of the circulatory system; Z83.3 Family history of diabetes mellitus; Z87.891 Personal history of nicotine dependence; Z88.6 Allergy status to analgesic agent; E44.1 Mild protein-calorie malnutrition
CPT/HCPCS: 36415; 36600; 71045; 80053; 81003; 82009-TC; 82550-TC; 82803-TC; 82962; 83880; 84484; 85025; 85379; 85610-TC; 93005; 96374; 96375; 99291; 99292; G0378